=== PATIENT | female | born 2000 | race Caucasian/White ===

== ENCOUNTER → 2025-02-16 16:39 | Outpatient (CLI) | payer OTHER, SELFPAY ==
[2025-02-16 17:59] LABS: Add Manual Diff / Slide Review NO; Hematocrit 39.2 % (36-46); Hemoglobin 13.4 g/dL (12.0-16.0); Lymphocytes Absolute Auto 3300 /uL (1100-4500); Mean Corpuscular HGB Conc 34.1 % (30-36); Mean Corpuscular Hemoglobin 28.4 PG (26-34); Mean Corpuscular Volume 83.3 fL (80-100); Platelet Count 328 X10^3/uL (150-400)
[2025-02-16 18:15] LABS: Appearance Urine UA CLEAR; Bilirubin Urine UA NEGATIVE (NEGATIVE); Color Urine UA YELLOW; Glucose Urine UA NEGATIVE (Negative); Ketones Urine UA NEGATIVE (NEGATIVE); Leukocyte Esterase Urine UA NEGATIVE (NEGATIVE); Nitrite Urine UA NEGATIVE (Negative); Occult Blood Urine UA 2+ (Negative); Protein Urine UA NEGATIVE (Negative); Specific Gravity Urine UA <=1.005 (1.000-1.035); Urobilinogen Urine UA 0.2 E.U./dL (0.2)
[2025-02-16 18:24] LABS: Hemoglobin A1C% w Est Avg Glu 4.9 % (4.0-6.0)
[2025-02-16 18:27] LABS: pH Urine UA 7.0 (4.5-8.0)
[2025-02-16 21:29] LABS: Hepatitis B Surface Antigen NEGATIVE s/c (NEGATIVE)
[2025-02-16 21:42] LABS: HIV 1 & 2 Ab/Ag 4th Gen Combo NEGATIVE (NEGATIVE); Hep C Virus Ab w/Reflex Quant NEGATIVE s/c (NEGATIVE)
== END ==
LOC: LAB 16:41
PROVIDERS: PCP Family Medicine; Referring Provider Family Medicine; Visit Provider Family Medicine
DX: O99.211 Obesity complicating pregnancy, first trimester (principal); E66.01 Morbid (severe) obesity due to excess calories
CPT/HCPCS: 36415; 80055; 81003; 81015; 82043; 82570; 83036; 86787; 86803; 86850; 86900; 86901; 87086; 87389

== ENCOUNTER → 2025-03-17 16:38 | Outpatient (CLI) | payer OTHER, SELFPAY ==
[2025-03-17 18:26] LABS: Alanine Aminotransferase 16 IU/L (<35); Albumin 3.8 g/dL (3.5-5.0); Albumin Globulin Ratio 1.5 (1.0-2.8); Alkaline Phosphatase 54 U/L (38-126); Blood Urea Nitrogen 4 mg/dL (7-17); Calcium 9.4 mg/dL (8.4-10.2); Carbon Dioxide 21 mmol/L (22-32); Chloride 104 mmol/L (98-107); Estimated Glomerular Filt Rate > 60 mL/min (>60); Globulin 2.5 g/dL (1.7-4.1); Glucose 76 mg/dL (70-99); HEMOLYSIS < 15 (0-50); Potassium 3.6 mmol/L (3.4-5.1); Sodium 134 mmol/L (137-145); Total Protein 6.3 g/dL (6.3-8.2)
== END ==
PROVIDERS: PCP Family Medicine; Referring Provider Family Medicine; Visit Provider Family Medicine
DX: O99.211 Obesity complicating pregnancy, first trimester (principal); E66.01 Morbid (severe) obesity due to excess calories
CPT/HCPCS: 36415; 80053

== ENCOUNTER → 2025-04-14 14:18 | Outpatient (CLI) | payer OTHER, SELFPAY ==
[2025-04-14 15:27] LABS: Natera Collection Specimen Collected
[2025-04-14 16:46] LABS: GTT (PREG) 1 Hour PP 50gm Dose 138 mg/dL (76-139)
== END ==
LOC: LAB 14:22
PROVIDERS: PCP Family Medicine; Referring Provider Family Medicine; Visit Provider Family Medicine
DX: O09.512 Supervision of elderly primigravida, second trimester (principal); Z34.00 Encounter for supervision of normal first pregnancy, unspecified trimester; O99.211 Obesity complicating pregnancy, first trimester
CPT/HCPCS: 36415; 82950

== ENCOUNTER → 2025-04-21 12:44 | Outpatient (CLI) | payer OTHER, SELFPAY ==
--- NOTE | 2025-04-21 12:45 | DI.US.S_ITS ---
PROCEDURE: US OB >= 14 WEEKS FETUS INDICATIONS: Anatomy Scan OUTSIDE/PRIOR DATING DATA: The calculations are made using the working OMAIRA of 09/07/25. TECHNIQUE: Real-time scanning was performed of the fetus, with image documentation and biometric measurements. Endovaginal scanning: No COMPARISON: None. FINDINGS: General: A single living intrauterine gestation is present. Presentation: Vertex Placenta: Placental position is anterior , without previa. Amniotic fluid index: 11.7 cm, normal range is 5-24 cm. Single deepest vertical pocket is 3.1 cm. heart rate: 155 beats per minute. Maternal cervical canal: 3.7 cm long. Normal lower limit is 2.5 cm. biometrics: Biparietal diameter: 5.1 cm, 21 weeks two days Head circumference: 18.6 cm, 20 weeks six days Abdominal circumference: 16.2 cm, 21 weeks two days Femur length: 3.4 cm, 20 weeks five days Clinically estimated gestational age: 20 weeks 1 days Composite gestational age from present scan: 21 weeks 0 days Estimated weight and percentile: 396 g, 72nd percentile Anatomic survey: Neuro: Ventricles are non-dilated at less than 10 mm. Cisterna magna is normal at 3-11 mm. Cerebellum is normal in size and morphology. Nuchal skin fold: Normal at less than 6 mm between 14-21 weeks gestational age. Face: Nose and lips, facial profile are normal. Spine: No evidence for spina bifida. Heart: 4-chambered heart is present, with normal ventricular outflow tracts. Diaphragm: Diaphragm is intact. Stomach: Left-sided stomach is present. Kidneys: No hydronephrosis. Normal is less than 5 mm in 2nd trimester, less than 7 mm in 3rd trimester. Cord: 3-vessel cord has orthotopic insertion. Bladder: Normal in size. Extremities: All 4 extremities identified. IMPRESSION: Single living intrauterine with estimated weight at the 72nd percentile. Composite gestational age is six ahead of the estimated gestational age. Symmetric growth and normal anatomy. Closed cervix and normal amniotic fluid volume. Anterior placenta. We strive to produce accurate, complete, and clear reports of imaging services. To assist us in improving patient care, this report was composed using standard report templates and voice recognition software. Therefore, it may contain abnormal punctuation, insertions and/or omissions. Occasional wrong-word or sound-alike substitutions may occur. Though we review the report and make efforts to correct it, we do recommend that the report be read carefully in proper context to recognize any text inaccuracies. Dictated by: Claire Jimenez M.D. on 04/22/2025 at 12:43 Approved by: Claire Jimenez M.D. on 04/25/2025 at 9:34
== END ==
LOC: US 12:44
PROVIDERS: PCP Family Medicine; Referring Provider Family Medicine; Visit Provider Family Medicine
DX: Z36.89 Encounter for other specified antenatal screening (principal); Z3A.20 20 weeks gestation of pregnancy
CPT/HCPCS: 76811

== ENCOUNTER → 2025-06-16 15:35 | Outpatient (CLI) | payer OTHER, SELFPAY ==
[2025-06-16 17:25] LABS: Hematocrit 36.1 % (36-46); Hemoglobin 12.2 g/dL (12.0-16.0)
[2025-06-16 18:04] LABS: GTT (PREG) 1 Hour PP 50gm Dose 140 mg/dL (76-139)
== END ==
PROVIDERS: PCP Family Medicine; Referring Provider Family Medicine; Visit Provider Family Medicine
DX: O99.211 Obesity complicating pregnancy, first trimester (principal); E66.01 Morbid (severe) obesity due to excess calories; Z3A.26 26 weeks gestation of pregnancy
CPT/HCPCS: 36415; 82950; 85014; 85018

== ENCOUNTER → 2025-06-27 09:42 | Outpatient (CLI) | payer OTHER, SELFPAY ==
[2025-06-27 11:17] LABS: Glucose Fasting Gestational 91 mg/dL (76-95)
[2025-06-27 12:01] LABS: Glucose 1 Hour Gest 159 mg/dL (76-180)
[2025-06-27 12:34] LABS: Glucose 2 Hour Gest 141 mg/dL (76-155)
[2025-06-27 12:57] LABS: Glucose Tol Interp,Gestational INTERPRETATION
[2025-06-27 13:46] LABS: Glucose 3 Hour Gest 98 mg/dL (76-140)
== END ==
PROVIDERS: PCP Family Medicine; Referring Provider Family Medicine; Visit Provider Family Medicine
DX: O99.211 Obesity complicating pregnancy, first trimester (principal); E66.01 Morbid (severe) obesity due to excess calories
CPT/HCPCS: 36415; 82951; 82952

== ENCOUNTER → 2025-07-04 10:54 | Outpatient (CLI) | payer OTHER, SELFPAY ==
--- NOTE | 2025-07-04 10:55 | DI.US.S_ITS ---
PROCEDURE: US OB LIMITED INDICATIONS: Evaluate for obesity; size date discrepancy OUTSIDE/PRIOR DATING DATA: Last menstrual period (LMP): 12/01/2024. LMP-based estimated date of delivery (OMAIRA): 09/07/2025 First dating scan (date and location): 02/16/2025 Estimated date of delivery (OMAIRA) from first dating scan: 09/07/2025 The calculations are made using the working OMAIRA of 09/07/2025. TECHNIQUE: Real-time scanning was performed of the fetus, with image documentation and biometric measurements. Endovaginal scanning: Not performed. COMPARISON: [facility], OB >= 14 WEEKS FETUS, 04/21/2025, 13:06. FINDINGS: General: A single living intrauterine gestation is present. Presentation: Vertex. Placenta: Placental position is anterior, without previa. Amniotic fluid index: 10.9 cm, normal range is 5-24 cm. Single deepest vertical pocket is 5.9 cm. heart rate: 150 beats per minute. Maternal cervical canal: Closed and measures 3.9 cm long. Normal lower limit is 2.5 cm. biometrics: Biparietal diameter: 8.0 cm, 32 weeks, 0 day. Head circumference: 27.7 cm, 30 weeks, 2 days. Abdominal circumference: 27.9 cm, 32 weeks, 0 day. Femur length: 5.8 cm, 30 weeks, 3 days. Clinically estimated gestational age: 30 weeks, 5 days. Composite gestational age from present scan: 31 weeks, 1 day. Estimated weight and percentile: 1742 g, 59% IMPRESSION: 1. Single live intrauterine gestation with fetus in vertex presentation. heart rate is 150 beats per minute. Normal SCARLET at 10.9 cm. 2. Normal growth. Estimated weight is at 59%. We strive to produce accurate, complete, and clear reports of imaging services. To assist us in improving patient care, this report was composed using standard report templates and voice recognition software. Therefore, it may contain abnormal punctuation, insertions and/or omissions. Occasional wrong-word or sound-alike substitutions may occur. Though we review the report and make efforts to correct it, we do recommend that the report be read carefully in proper context to recognize any text inaccuracies. Dictated by: Jason Root M.D. on 07/04/2025 at 16:15 Approved by: Jason Root M.D. on 07/04/2025 at 16:19
== END ==
LOC: US 10:54
PROVIDERS: PCP Family Medicine; Referring Provider Family Medicine; Visit Provider Family Medicine
DX: O26.843 Uterine size-date discrepancy, third trimester (principal); O99.213 Obesity complicating pregnancy, third trimester; E66.01 Morbid (severe) obesity due to excess calories; Z3A.31 31 weeks gestation of pregnancy
CPT/HCPCS: 76815